=== PATIENT | female | born 1950 | race Two or more races ===

== ENCOUNTER → 2018-05-04 | Outpatient (CLI) | payer OTHER | END | disposition home or self-care (01) | LOC: MAMO-SONO 08:15 → SONOGRAMA 08:33 → MAMO-SONO 08:33 | DX: J45.998 Other asthma (principal); E04.2 Nontoxic multinodular goiter; E03.8 Other specified hypothyroidism ==

== ENCOUNTER 2018-06-18 11:51 | Outpatient (CLI) | payer OTHER | END 2018-06-18 15:03 | disposition home or self-care (01) | LOC: SONOGRAMA 11:51 | DX: E04.1 Nontoxic single thyroid nodule (principal) ==

== ENCOUNTER 2018-09-28 11:29 | Outpatient (CLI) | payer OTHER | END 2018-09-28 17:08 | disposition home or self-care (01) | LOC: RAD 11:29 | DX: M48.57XA Collapsed vertebra, not elsewhere classified, lumbosacral region, initial encounter for fracture (principal) ==

== ENCOUNTER → 2018-11-23 | Outpatient (CLI) | payer OTHER | END | disposition home or self-care (01) | LOC: RAD 501 13:33 | DX: M16.12 Unilateral primary osteoarthritis, left hip (principal) ==

== ENCOUNTER 2019-01-29 09:55 | Outpatient (CLI) | payer OTHER | END 2019-01-29 10:01 | disposition home or self-care (01) | LOC: RAD 09:55 | DX: M16.12 Unilateral primary osteoarthritis, left hip (principal) ==

== ENCOUNTER 2021-05-24 08:39 | Outpatient (CLI) | payer OTHER | END 2021-05-24 08:44 | disposition home or self-care (01) | LOC: SONOGRAMA 08:39 | PROVIDERS: ATTEND Specialist | DX: K83.8 Other specified diseases of biliary tract (principal); K80.80 Other cholelithiasis without obstruction; K80.81 Other cholelithiasis with obstruction ==

== ENCOUNTER 2023-01-21 09:47 | Outpatient (CLI) | payer OTHER | END 2023-01-21 09:56 | disposition home or self-care (01) | LOC: RAD 09:47 | PROVIDERS: ATTEND Specialist | DX: M70.71 Other bursitis of hip, right hip (principal); J45.991 Cough variant asthma ==

== ENCOUNTER 2023-11-07 07:58 | Emergency (ER) | payer OTHER ==
[~2023-11-07] VITALS: Ht 162.6 cm; Wt 65.8 kg
[2023-11-07] MEDS ORDERED: XANAX2 MG PO (08:06)
[2023-11-07 09:54] LABS: HEMATOCRIT 45.1 % (36.0-45.00); HEMOGLOBIN 15.3 g/dL (12.0-15.00); MEAN CELL VOLUME 89.3 fL (80.00-100.00); MEAN CORPUSCULAR HEMOGLOBIN 30.3 pg (27.00-32.0); MEAN CORPUSCULAR HGB CONC 33.9 g/dl (32.0-36.0); PLATELET COUNT 234 K/uL (150-450); RED BLOOD COUNT 5.05 M/uL (4.00-6.00); RED CELL DISTRIBUTION WIDTH 13.2 % (11.5-14.5)
[2023-11-07 09:55] LABS: PH,URINE 5.5 (5.0-8.0); URINE APPEARANCE Clear; URINE BILIRRUBIN Negative (NEGATIVE); URINE BLOOD Negative; URINE COLOR Dark Yellow; URINE GLUCOSE Negative (NEGATIVE); URINE LEUKOCYTE Negative; URINE NITRATE Negative; URINE PROTEIN Negative (NEGATIVE)
[2023-11-07 09:57] LABS: URINE BACTERIA 807.6 uL (0.0-1933); URINE EPITHELIAL CELLS 31.6 uL (0.0-38.8); URINE RBC 33.7 uL (0.0-20.8)
[2023-11-07 10:24] LABS: ALBUMIN 3.6 gm/dL (3.4-5.0); CALCIUM 9.4 mg/dL (8.5-10.1); CREATININE SERUM 0.71 mg/dL (0.55-1.02); GFR 80.47; POTASSIUM 4.06 mEq/L (3.5-5.1); TOTAL PROTEIN 7.6 gm/dL (6.4-8.2)
== END 2023-11-07 11:55 | disposition home or self-care (01) ==
LOC: ER 07:59
PROVIDERS: Emergency Medicine
DX: K59.00 Constipation, unspecified (principal); Z88.0 Allergy status to penicillin; Z88.6 Allergy status to analgesic agent; Z88.8 Allergy status to other drugs, medicaments and biological substances; K80.20 Calculus of gallbladder without cholecystitis without obstruction

== ENCOUNTER 2023-11-13 09:36 | Outpatient (CLI) | payer OTHER ==
[~2023-11-13 09:36] MED LIST: XANAX2 MG PO
== END 2023-11-13 09:39 | disposition home or self-care (01) ==
LOC: TOM 09:36
PROVIDERS: ATTEND Internal Medicine Gastroenterology
DX: R10.31 Right lower quadrant pain (principal); Z72.0 Tobacco use; R05.9 Cough, unspecified
CPT/HCPCS: 71250; 74177; Q9965

== ENCOUNTER 2024-10-28 13:43 | Outpatient (CLI) | payer OTHER | END 2024-10-28 13:48 | disposition home or self-care (01) | LOC: TOM 13:43 | PROVIDERS: ATTEND Specialist | DX: I63.9 Cerebral infarction, unspecified (principal) ==

== ENCOUNTER 2024-12-09 15:29 | Outpatient (CLI) | payer OTHER | END 2024-12-09 15:33 | disposition home or self-care (01) | LOC: RAD 15:29 | PROVIDERS: ATTEND Orthopaedic Surgery Adult Reconstructive Orthopaedic Surgery | DX: I11.9 Hypertensive heart disease without heart failure (principal) ==

== ENCOUNTER 2025-02-02 14:08 | Outpatient (CLI) | payer OTHER | END 2025-02-02 14:16 | disposition home or self-care (01) | LOC: RAD 14:08 | PROVIDERS: ATTEND Specialist | DX: M76.60 Achilles tendinitis, unspecified leg (principal) ==